=== PATIENT | female | born 1930 | race African-American/Black ===

== ENCOUNTER 2017-04-26 10:23 | Emergency (ER) | payer MEDICARE ==
[~2017-04-26] VITALS: Ht 162.6 cm; Wt 64.0 kg
[~2017-04-26 10:23] MED LIST: ASPI-1159 PO
[2017-04-26] MEDS ORDERED: LORAZEPAM 2MG/ML CPJ IV PRN (11:00)
[2017-04-26 11:16] LABS: BASOPHILS % 0.4 % (0.0-2.0); EOSINOPHILS % 2.4 % (0.0-5.0); HEMOGLOBIN. 9.3 g/dL (12.0-16.0); LYMPHOCYTES % 15.2 % (20.0-50.0); MEAN CORPUSCULAR HEMOGLOBIN 27.5 pg (28.0-32.0); MEAN CORPUSCULAR VOLUME 85.7 fL (81.0-99.0); MEAN PLATELET VOLUME 7.1 fl (7.4-10.4); PLATELET 540 x1000/uL (130-400); RED BLOOD CELL COUNT 3.38 mill/uL (4.2-5.4); RED CELL DISTRIBUTION WIDTH 17.8 % (11.6-14.6)
[2017-04-26 11:33] LABS: CARBON DIOXIDE 25 mEq/L (21-32); CHLORIDE 102 mEq/L (98-107); ETHANOL BLOOD < 10 mg/dL
[2017-04-26] MEDS ORDERED: PHENYTOIN SODIUM 1,000 MG in SODIUM CHLORIDE 0.9% 100 ML IV ONE (12:15)
[2017-04-26] MEDS ORDERED: PHENYTOIN SODIUM 1,000 MG in SODIUM CHLORIDE 0.9% 100 ML IV NR (12:30)
[2017-04-26 13:27] VITALS: BP 198/93
== END 2017-04-26 13:27 | disposition home or self-care (01) ==
LOC: ER 10:36
DX: R56.9 Unspecified convulsions (principal); R53.83 Other fatigue; I10 Essential (primary) hypertension; Z79.82 Long term (current) use of aspirin; Z86.73 Personal history of transient ischemic attack (TIA), and cerebral infarction without residual deficits
CPT/HCPCS: 36415; 80053; 80185; 82962; 85025; 93005; 96365; 99285; G0482; J1165; J7050

== ENCOUNTER 2018-03-26 16:44 | Inpatient (IN) | payer MEDICARE ==
[~2018-03-26] VITALS: Ht 162.6 cm; Wt 53.5 kg
[2018-03-26] MEDS ORDERED: HYDROCODONE/ACETAMINOPHEN 5/325MG TABLET PO STA (17:14)
[2018-03-26 18:29] LABS: HEMATOCRIT. 32.3 % (36.0-48.0); HEMOGLOBIN. 10.8 g/dL (12.0-16.0); MEAN CORPUSCULAR HEMOGLOBIN 33.1 pg (28.0-32.0); MEAN CORPUSCULAR VOLUME 99.4 fL (81.0-99.0); MEAN PLATELET VOLUME 8.2 fl (7.4-10.4); PLATELET 356 x1000/uL (130-400); RED BLOOD CELL COUNT 3.25 mill/uL (4.2-5.4); RED CELL DISTRIBUTION WIDTH 13.4 % (11.6-14.6)
[2018-03-26 18:34] LABS: CHLORIDE 102 mEq/L (98-107)
[2018-03-26] MEDS ORDERED: MORPHINE SULFATE 4 MG/ML CPJ (NOT FOR IM USE) IV STA (18:53)
[2018-03-26] MEDS ORDERED: SODIUM CHLORIDE 0.9% 1,000 ML IV ONE (18:53)
[2018-03-26] MEDS ORDERED: ONDANSETRON HCL 4MG/2ML INJ IV STA (18:53)
[2018-03-26] MEDS ORDERED: CLONIDINE 0.2MG TABLET PO ONE (19:15)
[2018-03-26 19:35] LABS: PLATELET ESTIMATE NORMAL
[2018-03-26 19:48] LABS: CLARITY URINE CLEAR (CLEAR); COLOR URINE YELLOW (YELLOW); KETONES URINE NEGATIVE (NEGATIVE); LEUKOCYTE ESTERASE URINE NEGATIVE (NEGATIVE); NITRITE URINE NEGATIVE (NEGATIVE); OCCULT BLOOD URINE NEGATIVE (NEGATIVE); PH URINE 5.5 (4.5-8.0); PROTEIN URINE NEGATIVE (NEGATIVE); SPECIFIC GRAVITY URINE 1.007 (1.005-1.030); UROBILINOGEN URINE 0.2 E.U./dL (0.2-1.0)
[2018-03-26 21:45] VITALS: BP 150/46
[2018-03-26 22:16] VITALS: BP 150/46
[2018-03-26] MEDS ORDERED: ACETAMINOPHEN 325MG TABLET PO PRN (23:00)
[2018-03-27] VITALS (14 sets, daily range): BP systolic 107–180; BP diastolic 38–73
[2018-03-27] MEDS ORDERED: ATROPINE SULFATE 1MG/ML VIAL IV PRN (01:15)
[2018-03-27] MEDS: HYDRALAZINE HCL 50MG TABLET PO SCH ×3 (06:00→21:29)
[2018-03-27] MEDS: ASPIRIN 81MG TABLET PO SCH (10:12)
[2018-03-27] MEDS: ENOXAPARIN 30MG/0.3ML SYR SUBCUT SCH (10:13)
[2018-03-27] MEDS ORDERED: MAGNESIUM/ALUMINUM HYDROXIDE/SIMETHICONE 30ML UDC PO PRN (14:15)
[2018-03-27] MEDS: NICOTINE 21MG PATCH TD SCH (14:18)
[2018-03-27 14:51] LABS: *AMPHETAMINES SCREEN URINE NEGATIVE (NEGATIVE)
[2018-03-27 14:52] LABS: *BARBITURATES SCREEN URINE NEGATIVE (NEGATIVE); *BENZODIAZEPINES SCREEN URINE NEGATIVE (NEGATIVE); *COCAINE SCREEN URINE NEGATIVE (NEGATIVE); CANNABINOID URINE SCREEN NEGATIVE (NEGATIVE); METHADONE URINE SCREEN NEGATIVE (NEGATIVE); OPIATES URINE SCREEN NEGATIVE (NEGATIVE); PHENCYCLIDINE URINE SCREEN NEGATIVE (NEGATIVE)
[2018-03-27 15:07] LABS: CHLORIDE 104 mEq/L (98-107)
[2018-03-27 15:14] LABS: AMMONIA < 10 uMol/L (<32)
[2018-03-27 15:15] LABS: CREATINE KINASE 21 IU/L (26-192)
[2018-03-27 15:16] LABS: HEMATOCRIT 32.6 % (36.0-48.0); HEMOGLOBIN 10.8 g/dL (12.0-16.0); PLATELET 369 x1000/uL (130-400); RED BLOOD CELL COUNT 3.26 mill/uL (4.2-5.4); RED CELL DISTRIBUTION WIDTH 13.5 % (11.6-14.6)
[2018-03-27 15:18] LABS: CREATINE KINASE MB FRACTION < 1.0 ng/mL (0.5-3.6)
[2018-03-27] MEDS: HYDROCODONE/ACETAMINOPHEN 5/325MG TABLET PO PRN (16:03)
[2018-03-27] MEDS: LORAZEPAM 2MG/ML CPJ IV PRN (21:26)
[2018-03-28] VITALS (15 sets, daily range): BP systolic 96–210; BP diastolic 49–96
[2018-03-28] MEDS: HYDROCODONE/ACETAMINOPHEN 5/325MG TABLET PO PRN ×2 (01:00→12:44)
[2018-03-28] MEDS: HYDRALAZINE HCL 50MG TABLET PO SCH ×3 (06:04→22:00)
[2018-03-28 07:31] LABS: HEMATOCRIT 30.3 % (36.0-48.0); HEMOGLOBIN 10.2 g/dL (12.0-16.0); MEAN CORPUSCULAR HEMOGLOBIN 33.4 pg (28.0-32.0); MEAN CORPUSCULAR VOLUME 99.1 fL (81.0-99.0); PLATELET 351 x1000/uL (130-400); RED BLOOD CELL COUNT 3.06 mill/uL (4.2-5.4); RED CELL DISTRIBUTION WIDTH 13.2 % (11.6-14.6)
[2018-03-28] MEDS: ASPIRIN 81MG TABLET PO SCH (08:41)
[2018-03-28] MEDS: MULTIVITAMINS,THER W-MINERALS TABLET PO SCH (08:41)
[2018-03-28] MEDS: THIAMINE HCL 100MG TABLET PO SCH (08:42)
[2018-03-28] MEDS: NICOTINE 21MG PATCH TD SCH (08:43)
[2018-03-28] MEDS: ENOXAPARIN 30MG/0.3ML SYR SUBCUT SCH (08:44)
[2018-03-28 08:54] LABS: CHLORIDE 96 mEq/L (98-107)
[2018-03-28 09:04] LABS: TOTAL IRON BINDING CAPACITY 245 ug/dL (250-450)
[2018-03-28] MEDS: FOLIC ACID 1MG TABLET PO SCH (09:36)
[2018-03-28] MEDS: MORPHINE SULFATE 4 MG/ML CPJ (NOT FOR IM USE) IV PRN ×2 (09:37→23:27)
[2018-03-28] MEDS: HYDRALAZINE 20MG/ML VIAL IV PRN ×2 (10:05→19:10)
[2018-03-28] MEDS: LOSARTAN POTASSIUM 50 MG TABLET PO SCH ×2 (16:04→21:00)
[2018-03-28] MEDS: AMLODIPINE 10MG TABLET PO SCH (16:04)
[2018-03-28] MEDS ORDERED: LABETALOL 5MG/ML SYR 20 MG/4 ML SYRINGE IV SCH (19:00)
[2018-03-28] MEDS ORDERED: LABETALOL 5MG/ML SYR 20 MG/4 ML SYRINGE IV ONE (19:00)
[2018-03-28] MEDS: LORAZEPAM 2MG/ML CPJ IV PRN (19:55)
[2018-03-28] MEDS ORDERED: LORAZEPAM 2MG/ML CPJ IV PRN (20:30)
[2018-03-28] MEDS: LEVETIRACETAM 500 MG in SODIUM CHLORIDE 0.9% 100 ML IV SCH (21:00)
[2018-03-29] VITALS (12 sets, daily range): BP systolic 109–176; BP diastolic 49–80
[2018-03-29] MEDS: LORAZEPAM 2MG/ML CPJ IV PRN (03:23)
[2018-03-29] MEDS: HYDRALAZINE HCL 50MG TABLET PO SCH ×3 (05:28→22:10)
[2018-03-29] MEDS: HYDRALAZINE 20MG/ML VIAL IV PRN ×2 (06:18→18:54)
[2018-03-29] MEDS: LEVETIRACETAM 500 MG in SODIUM CHLORIDE 0.9% 100 ML IV SCH ×2 (09:59→20:31)
[2018-03-29] MEDS: AMLODIPINE 10MG TABLET PO SCH (10:00)
[2018-03-29] MEDS: MORPHINE SULFATE 4 MG/ML CPJ (NOT FOR IM USE) IV PRN (10:01)
[2018-03-29] MEDS: NICOTINE 21MG PATCH TD SCH (10:02)
[2018-03-29] MEDS: FOLIC ACID 1MG TABLET PO SCH (10:02)
[2018-03-29] MEDS: ASPIRIN 81MG TABLET PO SCH (10:02)
[2018-03-29] MEDS: THIAMINE HCL 100MG TABLET PO SCH (10:02)
[2018-03-29] MEDS: MULTIVITAMINS,THER W-MINERALS TABLET PO SCH (10:02)
[2018-03-29] MEDS: ENOXAPARIN 30MG/0.3ML SYR SUBCUT SCH (10:02)
[2018-03-29] MEDS: LOSARTAN POTASSIUM 50 MG TABLET PO SCH ×2 (10:04→20:37)
[2018-03-30] VITALS (12 sets, daily range): BP systolic 107–190; BP diastolic 51–88
[2018-03-30] MEDS: TEMAZEPAM 15MG CAPSULE PO PRN (01:16)
[2018-03-30] MEDS: HYDRALAZINE HCL 50MG TABLET PO SCH ×3 (05:11→21:33)
[2018-03-30 08:00] LABS: CHLORIDE 88 mEq/L (98-107)
[2018-03-30] MEDS: THIAMINE HCL 100MG TABLET PO SCH (08:46)
[2018-03-30] MEDS: FOLIC ACID 1MG TABLET PO SCH (08:47)
[2018-03-30] MEDS: MULTIVITAMINS,THER W-MINERALS TABLET PO SCH (08:47)
[2018-03-30] MEDS: ASPIRIN 81MG TABLET PO SCH (08:47)
[2018-03-30] MEDS: LOSARTAN POTASSIUM 50 MG TABLET PO SCH ×2 (08:47→21:34)
[2018-03-30] MEDS: NICOTINE 21MG PATCH TD SCH (08:48)
[2018-03-30] MEDS: LEVETIRACETAM 500 MG in SODIUM CHLORIDE 0.9% 100 ML IV SCH (08:48)
[2018-03-30] MEDS: ENOXAPARIN 30MG/0.3ML SYR SUBCUT SCH (08:48)
[2018-03-30] MEDS: AMLODIPINE 10MG TABLET PO SCH (08:48)
[2018-03-30] MEDS: SODIUM CHLORIDE 0.9% 1,000 ML IV SCH (11:19)
[2018-03-30] MEDS: DOCUSATE SODIUM 100MG CAPSULE PO PRN (15:03)
[2018-03-30 16:49] LABS: CHLORIDE 87 mEq/L (98-107)
[2018-03-30] MEDS: DOCUSATE SODIUM 100MG CAPSULE PO SCH (17:59)
[2018-03-30] MEDS: LORAZEPAM 2MG/ML CPJ IV PRN (18:00)
[2018-03-30] MEDS: FERROUS SULFATE 325MG TABLET PO SCH (18:00)
[2018-03-30] MEDS: MORPHINE SULFATE 4 MG/ML CPJ (NOT FOR IM USE) IV PRN (18:01)
[2018-03-30] MEDS ORDERED: PHENYLEPHRINE/SHK LV/MO/PET,WH RECTAL OINT 57GM PR PRN (20:00)
[2018-03-30] MEDS: LEVETIRACETAM 500MG TABLET PO SCH (21:34)
[2018-03-31] VITALS (13 sets, daily range): BP systolic 107–182; BP diastolic 42–95
[2018-03-31] MEDS: HYDRALAZINE HCL 50MG TABLET PO SCH ×3 (05:17→20:54)
[2018-03-31] MEDS: SODIUM CHLORIDE 0.9% 1,000 ML IV SCH (05:17)
[2018-03-31 07:13] LABS: HEMATOCRIT 27.9 % (36.0-48.0); HEMOGLOBIN 9.8 g/dL (12.0-16.0); MEAN CORPUSCULAR HEMOGLOBIN 33.9 pg (28.0-32.0); MEAN CORPUSCULAR VOLUME 96.4 fL (81.0-99.0); PLATELET 370 x1000/uL (130-400); RED BLOOD CELL COUNT 2.89 mill/uL (4.2-5.4); RED CELL DISTRIBUTION WIDTH 13.1 % (11.6-14.6)
[2018-03-31 08:03] LABS: CHLORIDE 87 mEq/L (98-107)
[2018-03-31] MEDS: LOSARTAN POTASSIUM 50 MG TABLET PO SCH ×2 (09:00→20:53)
[2018-03-31] MEDS: AMLODIPINE 10MG TABLET PO SCH (09:00)
[2018-03-31] MEDS: FERROUS SULFATE 325MG TABLET PO SCH ×3 (09:14→18:01)
[2018-03-31] MEDS: LEVETIRACETAM 500MG TABLET PO SCH ×2 (09:32→20:53)
[2018-03-31] MEDS: HYDROCODONE/ACETAMINOPHEN 5/325MG TABLET PO PRN ×2 (09:32→18:04)
[2018-03-31] MEDS: THIAMINE HCL 100MG TABLET PO SCH (09:32)
[2018-03-31] MEDS: FOLIC ACID 1MG TABLET PO SCH (09:32)
[2018-03-31] MEDS: DOCUSATE SODIUM 100MG CAPSULE PO SCH (09:33)
[2018-03-31] MEDS: ASPIRIN 81MG TABLET PO SCH (09:33)
[2018-03-31] MEDS: MULTIVITAMINS,THER W-MINERALS TABLET PO SCH (09:33)
[2018-03-31] MEDS: ENOXAPARIN 30MG/0.3ML SYR SUBCUT SCH (09:35)
[2018-03-31] MEDS: NICOTINE 21MG PATCH TD SCH (09:35)
[2018-03-31] MEDS ORDERED: SODIUM CHLORIDE 3% 500 ML IV ONE (11:30)
[2018-03-31] MEDS ORDERED: LORAZEPAM 2MG/ML CPJ IV PRN (14:00)
[2018-03-31] MEDS: DOCUSATE SODIUM 100MG CAPSULE PO PRN (14:47)
[2018-03-31] MEDS ORDERED: FUROSEMIDE 40MG/4ML VIAL IVP NR ×2 (16:00→18:35)
[2018-03-31] MEDS ORDERED: MORPHINE SULFATE 4 MG/ML CPJ (NOT FOR IM USE) IV PRN (17:00)
[2018-03-31] MEDS: HYDRALAZINE 20MG/ML VIAL IV PRN (19:01)
[2018-04-01] VITALS (10 sets, daily range): BP systolic 117–191; BP diastolic 45–92
[2018-04-01] MEDS: TEMAZEPAM 15MG CAPSULE PO PRN (00:52)
[2018-04-01 03:10] LABS: CHLORIDE 95 mEq/L (98-107)
[2018-04-01] MEDS: HYDRALAZINE HCL 50MG TABLET PO SCH ×3 (05:12→22:11)
[2018-04-01 08:22] LABS: HEMATOCRIT 32.8 % (36.0-48.0); HEMOGLOBIN 11.1 g/dL (12.0-16.0); MEAN CORPUSCULAR HEMOGLOBIN 33.1 pg (28.0-32.0); MEAN CORPUSCULAR VOLUME 97.5 fL (81.0-99.0); PLATELET 452 x1000/uL (130-400); RED BLOOD CELL COUNT 3.37 mill/uL (4.2-5.4); RED CELL DISTRIBUTION WIDTH 13.4 % (11.6-14.6)
[2018-04-01 09:39] LABS: CHLORIDE 92 mEq/L (98-107)
[2018-04-01] MEDS: DOCUSATE SODIUM 100MG CAPSULE PO SCH (09:54)
[2018-04-01] MEDS: NICOTINE 21MG PATCH TD SCH (09:54)
[2018-04-01] MEDS: FOLIC ACID 1MG TABLET PO SCH (09:55)
[2018-04-01] MEDS: THIAMINE HCL 100MG TABLET PO SCH (09:55)
[2018-04-01] MEDS: ASPIRIN 81MG TABLET PO SCH (09:55)
[2018-04-01] MEDS: LEVETIRACETAM 500MG TABLET PO SCH ×2 (09:55→20:45)
[2018-04-01] MEDS: MULTIVITAMINS,THER W-MINERALS TABLET PO SCH (09:55)
[2018-04-01] MEDS: AMLODIPINE 10MG TABLET PO SCH (09:56)
[2018-04-01] MEDS: LOSARTAN POTASSIUM 50 MG TABLET PO SCH ×2 (09:56→20:45)
[2018-04-01] MEDS: ENOXAPARIN 30MG/0.3ML SYR SUBCUT SCH (09:56)
[2018-04-01] MEDS: FERROUS SULFATE 325MG TABLET PO SCH ×3 (10:01→17:33)
[2018-04-01] MEDS: HYDROCODONE/ACETAMINOPHEN 5/325MG TABLET PO PRN (11:37)
[2018-04-01] MEDS: SODIUM CHLORIDE 0.9% 1,000 ML IV SCH (16:20)
[2018-04-01] MEDS: HYDRALAZINE 20MG/ML VIAL IV PRN (22:11)
[2018-04-02] VITALS (11 sets, daily range): BP systolic 137–185; BP diastolic 49–82
[2018-04-02] MEDS: TEMAZEPAM 15MG CAPSULE PO PRN (00:35)
[2018-04-02] MEDS: SODIUM CHLORIDE 0.9% 1,000 ML IV SCH ×2 (04:41→19:02)
[2018-04-02] MEDS: HYDRALAZINE 20MG/ML VIAL IV PRN ×2 (05:51→15:34)
[2018-04-02] MEDS: HYDRALAZINE HCL 50MG TABLET PO SCH ×2 (05:52→13:27)
[2018-04-02] MEDS: AMLODIPINE 10MG TABLET PO SCH (08:52)
[2018-04-02] MEDS: FERROUS SULFATE 325MG TABLET PO SCH ×3 (08:52→18:00)
[2018-04-02] MEDS: FOLIC ACID 1MG TABLET PO SCH (08:52)
[2018-04-02] MEDS: LEVETIRACETAM 500MG TABLET PO SCH (08:52)
[2018-04-02] MEDS: THIAMINE HCL 100MG TABLET PO SCH (08:52)
[2018-04-02] MEDS: MULTIVITAMINS,THER W-MINERALS TABLET PO SCH (08:52)
[2018-04-02] MEDS: ASPIRIN 81MG TABLET PO SCH (08:52)
[2018-04-02] MEDS: LOSARTAN POTASSIUM 50 MG TABLET PO SCH (08:52)
[2018-04-02] MEDS: DOCUSATE SODIUM 100MG CAPSULE PO SCH (08:52)
[2018-04-02] MEDS: NICOTINE 21MG PATCH TD SCH (08:53)
[2018-04-02] MEDS: ENOXAPARIN 30MG/0.3ML SYR SUBCUT SCH (08:55)
== END 2018-04-02 20:14 | DRG 543 ==
LOC: ER 16:44 → 7WST 19:39 → ENRESERV 20:56 → ER 21:31 → 5EST 03-27 08:45
PROVIDERS: ADMIT Internal Medicine; ATTEND Internal Medicine
DX: M48.56XA Collapsed vertebra, not elsewhere classified, lumbar region, initial encounter for fracture (principal); E87.1 Hypo-osmolality and hyponatremia; E46 Unspecified protein-calorie malnutrition; R26.9 Unspecified abnormalities of gait and mobility; I11.9 Hypertensive heart disease without heart failure; D64.9 Anemia, unspecified; R00.1 Bradycardia, unspecified; G90.8 Other disorders of autonomic nervous system; F10.20 Alcohol dependence, uncomplicated; Y90.9 Presence of alcohol in blood, level not specified; E61.1 Iron deficiency; E86.0 Dehydration; F03.90 Unspecified dementia, unspecified severity, without behavioral disturbance, psychotic disturbance, mood disturbance, and anxiety; W18.39XA Other fall on same level, initial encounter; F17.210 Nicotine dependence, cigarettes, uncomplicated; G40.909 Epilepsy, unspecified, not intractable, without status epilepticus; I16.0 Hypertensive urgency; K64.9 Unspecified hemorrhoids; M47.816 Spondylosis without myelopathy or radiculopathy, lumbar region; Z86.73 Personal history of transient ischemic attack (TIA), and cerebral infarction without residual deficits; Z79.82 Long term (current) use of aspirin; Y93.89 Activity, other specified; Y92.090 Kitchen in other non-institutional residence as the place of occurrence of the external cause; Y99.8 Other external cause status; Z68.20 Body mass index [BMI] 20.0-20.9, adult
CPT/HCPCS: 36415; 70551; 71045; 72100; 72148; 73521; 80048; 80185; 80305; 82140; 82542; 82550; 82553; 82570; 82652; 82962; 83540; 83550; 83935; 84300; 84443; 84484; 85027; 93005; 93306; 96361; 96374; 96375; 97116; 97162; 97530; 99285; A6261; J0360; J0461; J1650; J1940; J1953; J2060; J2270; J2405; J3490; J7030; J7050